=== PATIENT | male | born 1960 | race Caucasian/White ===

== ENCOUNTER → 2019-05-05 09:41 | Outpatient (CLI) | payer BC ==
[2019-05-05 10:43] LABS: ALBUMIN 4.4 g/dL (3.4-5.0); BILIRUBIN - DIRECT 0.21 mg/dL (0.00-0.30); BILIRUBIN - INDIRECT 0.59 mg/dL (0.00-1.00); BILIRUBIN - TOTAL 0.8 mg/dL (0.2-1.3); PROTEIN - SERUM 7.7 g/dL (6.4-8.2)
[2019-05-06 07:12] LABS: HEPATITIS C ANTIBODY <0.1 S/CO RAT (0.0-0.9)
== END | disposition home or self-care (01) ==
LOC: D.US 09:41
PROVIDERS: ATTEND Internal Medicine Gastroenterology
DX: R74.8 Abnormal levels of other serum enzymes (principal)

== ENCOUNTER → 2019-05-12 08:33 | Outpatient (CLI) | payer BC | END | disposition home or self-care (01) | LOC: D.MRI 08:33 | PROVIDERS: ATTEND Internal Medicine Gastroenterology | DX: R93.819 Abnormal radiologic findings on diagnostic imaging of unspecified testicle (principal); K76.9 Liver disease, unspecified ==